=== PATIENT | female | born 2005 | race Caucasian/White ===

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

== ENCOUNTER 2024-02-09 11:17 | Emergency (ER) | payer MEDICAID ==
[~2024-02-09] VITALS: Ht 165.1 cm; Wt 59.4 kg
[2024-02-09] MEDS: ipratropium/albuterol 3ml nebule NEB ONE ×2 (11:40→12:22)
[2024-02-09 11:47] VITALS: PULSE 103; PULSE 99; RESP 20; RESP 22; O2SAT 98
[2024-02-09] MEDS ORDERED: PRED20TA PO (11:56)
[2024-02-09] MEDS ORDERED: ALBU8HFA INH (11:56)
[2024-02-09 12:06] VITALS: PULSE 119; PULSE 122; RESP 22; O2SAT 98; O2SAT 99
[2024-02-09] MEDS: predniSONE 20 mg tablet PO ONE (12:20)
[2024-02-09 13:50] VITALS: BP 134/73; PULSE 119; RESP 18; TEMP 99.3; O2SAT 100
== END 2024-02-09 13:51 | disposition home or self-care (01) ==
LOC: ER 11:18
DX: J45.901 Unspecified asthma with (acute) exacerbation (principal); J06.9 Acute upper respiratory infection, unspecified; Z79.52 Long term (current) use of systemic steroids
CPT/HCPCS: 94640; 99283; J7512; 94760